=== PATIENT | male | born 1980 | race Two or more races ===

== ENCOUNTER 2020-03-13 16:51 | Emergency (ER) | payer OTHER, MEDICAID ==
[~2020-03-13] VITALS: Ht 167.6 cm; Wt 92.1 kg
[2020-03-13 17:26] VITALS: Ht 167.6 cm; Wt 92.1 kg
[2020-03-13 18:14] VITALS: BP 121/84
== END 2020-03-13 18:14 | disposition home or self-care (01) ==
LOC: ED 16:51
DX: S39.012A Strain of muscle, fascia and tendon of lower back, initial encounter (principal); S20.219A Contusion of unspecified front wall of thorax, initial encounter; V49.9XXA Car occupant (driver) (passenger) injured in unspecified traffic accident, initial encounter; Y93.I9 Activity, other involving external motion; Y92.413 State road as the place of occurrence of the external cause; Y99.8 Other external cause status
CPT/HCPCS: J1885